=== PATIENT | female | born 2000 ===

== ENCOUNTER 2021-08-26 14:45 | Emergency (ER) | payer OTHER ==
[2021-08-26 14:55] VITALS: BP 112/67; PULSE 97; TEMP 98.4; BMI 38.9
[2021-08-26] MEDS ORDERED: guaiFENesin/CODEINE 10 ML UNIT-DOSE CUPS PO ONE (15:57)
[2021-08-26] MEDS ORDERED: guaiFENesin/CODEINE 5 ML UNIT-DOSE CUPS PO ONE (16:33)
== END 2021-08-26 17:01 | disposition home or self-care (01) ==
LOC: JER 14:45
DX: U07.1 COVID-19 (principal); R05.1 Acute cough
CPT/HCPCS: 99283-25